=== PATIENT | male | born 1960 ===

== ENCOUNTER 2018-01-30 19:20 | Emergency (ER) | payer MEDICAID, SELFPAY ==
[2018-01-30 19:47] VITALS: TEMP 98.1
[2018-01-30] MEDS ORDERED: Naproxen 500 MG TAB PO ONE (20:09)
--- NOTE | 2018-01-30 20:28 | ED PDOC ---
Lower Extremity Pain/Injury Time Seen by Provider: 01/30/18 19:48 Chief Complaint (Nursing): Lower Extremity Problem/Injury Chief Complaint (Provider): Right Foot Pain and Swelling History Per: Patient History/Exam Limitations: no limitations Onset/Duration Of Symptoms: Days (x4) Current Symptoms Are (Timing): Still Present Severity: None Additional Complaint(s): 57 year old male presents to the emergency department complaining of left ankle pain and swelling. Patient reports that 4 days ago he tripped and fell causing injury and has been feeling pain ever since. Denies numbness, tingling and any other injury. - Ankle/Foot Description Of Injury: Fell Past Medical History Reviewed: Historical Data, Nursing Documentation, Vital Signs Vital Signs: Last Vital Signs Temp 98.1 F 01/30/18 19:45 Pulse 71 01/30/18 19:45 Resp 20 01/30/18 19:45 BP 139/89 01/30/18 19:45 Pulse Ox 100 01/30/18 19:45 - Medical History PMH: Denies: HIV, Chronic Kidney Disease - Surgical History Surgical History: No Surg Hx - Family History Family History: States: Unknown Family Hx - Home Medications Home Medications: Ambulatory Orders Medication Instructions Recorded Cephalexin [cephalexin] 500 mg PO TID #30 cap 08/30/16 Sulfamethoxazole/Trimethoprim 1 each PO BID #20 tablet 08/30/16 [Bactrim 400-80 mg Tablet] Naproxen [Naprosyn] 500 mg PO BID PRN #10 tab 01/30/18 - Allergies Allergies/Adverse Reactions: Allergies Allergy/AdvReac Type Severity Reaction Status Date / Time No Known Allergies Allergy Verified 01/30/18 19:45 Review of Systems Musculoskeletal: Positive for: Other (left ankle pain and swelling) Neurological: Negative for: Numbness (denies numbness and swelling) Physical Exam - Reviewed Nursing Documentation Reviewed: Yes Vital Signs Reviewed: Yes - Physical Exam Appears: Positive for: Non-toxic, No Acute Distress Skin: Positive for: Normal Color, Warm, Dry. Negative for: Rash Extremity: Positive for: Swelling (Left ankle on lateral malleolus moderate swelling and tenderness). Negative for: Tenderness (no foot or leg tenderness) , Calf Tenderness, Deformity Neurologic/Psych: Positive for: Oriented, Gait - ECG O2 Sat by Pulse Oximetry: 100 (RA) Pulse Ox Interpretation: Normal Medical Decision Making Medical Decision Makin Initial Impression 57 year old male presenting with left ankle pain Initial Plan: * Naproxen 500 mg PO * RAD left ankl * Reevaluation Pt. evaluated by Dr. Parrish, podiatry resident, discussed case with Dr. Daniel Sosa , splinted patient, and arranged outpatient f/u with Dr. Daniel sosa. Documented by Aggie valenzuela acting as a scribe for Negro Rodriguez PA-C. All medical record entries made by the Scribe were at my direction and personally dictated by me. I have reviewed the chart and agree that the record accurately reflects my personal performance of the history, physical exam, medical decision making, and the department course for this patient. I have also personally directed, reviewed, and agree with the discharge instructions and disposition. Disposition - Clinical Impression Clinical Impression: Ankle fracture - Patient ED Disposition Is Patient to be Admitted: No - Disposition Referrals: Andry Mast MD [Staff Provider] - Disposition: Routine/Home Disposition Time: 23:10 Condition: STABLE Additional Instructions: Follow up with Dr. Daniel Sosa as scheduled. Return to ED immediately if symptoms worsen. Prescriptions: Naproxen [Naprosyn] 500 mg PO BID PRN #10 tab PRN Reason: Pain Instructions: Ankle Fracture (DC), How to Use Crutches Forms: [employer] (Syriac) Print Language: KAZAKH
--- NOTE | 2018-01-30 21:45 | RAD ---
EXAM: XR Left Ankle Complete, 3 or More Views EXAM DATE/TIME: 01/30/2018 8:09 PM CLINICAL HISTORY: 57 years old, male; Injury or trauma; Fall; Initial encounter; Blunt trauma; Ankle; Left TECHNIQUE: Frontal, lateral and oblique views of the left ankle. COMPARISON: There are no prior studies for comparison. FINDINGS: Bones/joints: There is diffuse soft tissue swelling at the left ankle. There is no effusion in the ankle joint. No tibial fractures are identified. Distal fibular fracture cannot be excluded. No foot fractures are identified. Mineralization is normal. Soft tissues: There is mild edema in the lower half IMPRESSION: Diffuse soft tissue swelling, possible distal fibular fracture Correlate with point tenderness
[2018-01-30 23:39] VITALS: BP 134/82; PULSE 78; RESP 16; O2SAT 99
--- NOTE | 2018-01-31 09:18 | CP.PCM.CON ---
History of Present Illness - History of Present Illness History of Present Illness: Orthopedic Consult note: Dr. Osullivan 57 year old male with no significant PMHx was seen and evaluated at bedside for left ankle pain. Patient reports that he twisted his ankle about 4 days ago which led to his pain and swelling in the ankle today. Patient and his states that the patient is "hard headed and does not listen". Reports that he has been walking on his left LE after the injury even with mild pain. Patient states that the pain slowly increased overtime. Reports that he has been taking advil which has been helping him with the pain. Denies of any other trauma to the foot/ankle today. Denies of having recent F/N/V/C/SOB/CP/headache. Denies of any other pedal complains at this time. PMHx: Denies PSHx: Denies Allergies: N.K.D.A SHx: denies smoking, EtOH or illicit drug usage Review of Systems - Constitutional Constitutional: As Per HPI Past Patient History - Infectious Disease Hx of Infectious Diseases: None - Past Medical History & Family History Past Medical History?: No - Past Social History Smoking Status: Never Smoked - CARDIAC Hx Cardiac Disorders: No - PULMONARY Hx Respiratory Disorders: No - NEUROLOGICAL Hx Neurological Disorder: No - HEENT Hx HEENT Problems: No - RENAL Hx Chronic Kidney Disease: No - ENDOCRINE/METABOLIC Hx Endocrine Disorders: No - HEMATOLOGICAL/ONCOLOGICAL Hx Human Immunodeficiency Virus (HIV): No - INTEGUMENTARY Hx Dermatological Problems: No - MUSCULOSKELETAL/RHEUMATOLOGICAL Hx Falls: No - GENITOURINARY/GYNECOLOGICAL Hx Genitourinary Disorders: No - PSYCHIATRIC Hx Psychophysiologic Disorder: No Hx Substance Use: No (DENIES) - SURGICAL HISTORY Hx Surgeries: Yes Meds Home Medications: Home Medication List Medication Instructions Recorded Confirmed Type Naproxen [Naprosyn] 500 mg PO BID PRN #10 tab 01/30/18 Rx Allergies/Adverse Reactions: Allergies Allergy/AdvReac Type Severity Reaction Status Date / Time No Known Allergies Allergy Verified 01/30/18 19:45 Physical Exam - Constitutional Appears: Well, Non-toxic, No Acute Distress - Extremities Exam Additional comments: Left LE focused exam: VASC: DP/PT pulses are palpable 2/4, Cap refill time: < 3 sec noted to all digits, Temp gradient: warm to warm from proximal to distal, moderate non- pitting edema noted girish-malleolar area to the lateral ankle which extends distally to the dorsum of the left foot DERM: No open lesions, no erythema, no clinical suspicion of active infection NEURO: Protective sensation grossly intact ORTHO: Pain on palpation superior to ATFL ligament, no pain during palpation of the CFL ligament, pain present during palpation of the posterior lateral malleolus, no pain along the course of the peroneal tendons, no pain on palpation of the base of the 5th metatarsal, no pain on palpation of the Josefina 's tendon insertion on posterior calc or watershed area of the tendon, no gaps or dells noted on the Achilles tendon, no pain on palpation of the deltoid ligament complex, Tib-fib squeeze test: negative, mild pain during AROM in all 4 direction at the AJ which increased during PROM - pain localized to the lateral ankle, Prett test negative - Neurological Exam Neurological exam: Alert, Oriented x3 - Psychiatric Exam Psychiatric exam: Normal Affect, Normal Mood Results - Vital Signs Recent Vital Signs: Last Vital Signs Temp 98.1 F 01/30/18 19:45 Pulse 78 01/30/18 23:38 Resp 16 01/30/18 23:38 BP 134/82 01/30/18 23:38 Pulse Ox 99 01/30/18 23:38 Assessment & Plan - Assessment and Plan (Free Text) Assessment: 57 year old male with no extensive PMHx was evaluated for unicortical non- displaced lateral malleolus fracture with possible ATFL ligament injury Plan: Patient seen and evaluated Discussed plan with attending Dr. Osullivan Vitals and Charts reviewed X-rays of the left ankle ordered/reviewed - unicortical non-displaced radiolucent line noted posteriorly on the lateral view on lateral malleolus consistent with the lateral malleolus non- displaced fx; increase radiodensity within soft tissue consistent with soft tissue edema Aguila compression dressing applied to the LLE Well padded AO posterior splint applied to the LLE Patient educated of the RICE protocol Patient and educated to remain NWB to LLE using crutches Patient educated the course of treatment and educated to follow up with Dr. José Manuel Sosa Patient and his demonstrated verbal understanding of the plan Thank you for the podiatry consult and allowing to take part in patient care - Date & Time Date: 01/31/18 Time: 10:44
== END 2018-01-30 23:38 | disposition home or self-care (01) ==
LOC: H.ER 19:20
DX: S82.62XA Displaced fracture of lateral malleolus of left fibula, initial encounter for closed fracture (principal); W19.XXXA Unspecified fall, initial encounter; Y92.89 Other specified places as the place of occurrence of the external cause

== ENCOUNTER 2018-04-20 16:37 | Emergency (ER) | payer MEDICAID, OTHER ==
--- NOTE | 2018-04-20 16:54 | ED PDOC ---
HPI: General Adult Time Seen by Provider: 04/20/18 16:51 Chief Complaint (Provider): left foot pain History Per: Patient Additional Complaint(s): 57-year-old male presents with persistent pain to left foot. He sustained a fracture in January of 2018 and was placed in a cast which he only wore 5 weeks instead of 6 weeks as he was told. Patient states he has had swelling and pain since that time. 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 He denies any more recent trauma. PMD: none Past Medical History Reviewed: Historical Data, Nursing Documentation, Vital Signs Vital Signs: Last Vital Signs Temp 98.3 F 04/20/18 17:24 Pulse 68 04/20/18 17:24 Resp 16 04/20/18 17:24 BP 120/80 04/20/18 17:24 Pulse Ox 99 04/20/18 17:24 - Medical History PMH: No Chronic Diseases - Surgical History Surgical History: No Surg Hx - Family History Family History: States: No Known Family Hx - Living Arrangements Living Arrangements: With Family - Social History Current smoker - smoking cessation education provided: No Alcohol: None Drugs: Denies - Home Medications Home Medications: Ambulatory Orders Medication Instructions Recorded Cephalexin [cephalexin] 500 mg PO TID #30 cap 08/30/16 Sulfamethoxazole/Trimethoprim 1 each PO BID #20 tablet 08/30/16 [Bactrim 400-80 mg Tablet] Naproxen [Naprosyn] 500 mg PO BID PRN #10 tab 01/30/18 Ibuprofen [Motrin Tab] 800 mg PO Q8 PRN #20 tab 04/20/18 - Allergies Allergies/Adverse Reactions: Allergies Allergy/AdvReac Type Severity Reaction Status Date / Time No Known Allergies Allergy Verified 01/30/18 19:45 Review of Systems ROS Statement: Except As Marked, All Systems Reviewed And Found Negative Musculoskeletal: Positive for: Other (left foot and ankle pain) Physical Exam - Reviewed Nursing Documentation Reviewed: Yes Vital Signs Reviewed: Yes - Physical Exam Appears: Positive for: Well, Non-toxic, No Acute Distress Skin: Positive for: Normal Color. Negative for: Rash Eye Exam: Positive for: Normal appearance Cardiovascular/Chest: Positive for: Regular Rate, Rhythm Respiratory: Positive for: Normal Breath Sounds Extremity: Positive for: Other (Mild swelling and tenderness to dorsal aspect of left foot and lateral malleolus of left ankle, full range of motion with pain , normal distal sensation) Neurologic/Psych: Positive for: Alert, Oriented - ECG O2 Sat by Pulse Oximetry: 99 Pulse Ox Interpretation: Normal - Other Rad Left foot and ankle x-ray X-Ray: Interpreted by Me, Viewed By Me X-Ray Interpretation: no acute fx, no dis Medical Decision Making Medical Decision Makin57 y/o male with left foot and ankle pain Plan: Pain meds declined X-ray left foot and ankle Podiatry resident, Dr. Anaya at bedside. X-ray reviewed and shows malunion of previous fracture from January. Aguila compression dressing applied to affected area. Patient was given rx motrin and was referred to podiatry clinic at [facility] for follow up with Dr. Franks. Crutches given. Disposition - Clinical Impression Clinical Impression: Ankle pain - Patient ED Disposition Is Patient to be Admitted: No Counseled Patient/Family Regarding: Studies Performed, Diagnosis, Need For Followup, Rx Given - Disposition Referrals: [facility] [Outside] Disposition: Routine/Home Disposition Time: 19:08 Condition: STABLE Additional Instructions: Ice, rest and elevate affected area. Take prescription meds as directed as needed for pain. Follow-up at [facility] clinic with Dr. Franks. Call Monday to arrange for follow up appointment. Prescriptions: Ibuprofen [Motrin Tab] 800 mg PO Q8 PRN #20 tab PRN Reason: Pain, Moderate (4-7) Instructions: Ankle Sprain
[2018-04-20 17:25] VITALS: RESP 16; O2SAT 99
--- NOTE | 2018-04-20 18:22 | RAD ---
Date of service: 04/20/2018 PROCEDURE: Left Foot Radiographs. HISTORY: Lateral foot pain at the level of the 5th metatarsal. COMPARISON: None. FINDINGS: BONES: No acute fracture identified. Incidental Plantar and Achilles Tendon insertion calcaneal spurs. JOINTS: Normal. SOFT TISSUES: Normal. OTHER FINDINGS: None. IMPRESSION: No acute findings related to/accounting for the clinical presentation.
--- NOTE | 2018-04-20 18:23 | RAD ---
Date of service: 04/20/2018 PROCEDURE: Left Ankle Radiographs. HISTORY: pain COMPARISON: 01/30/2018 FINDINGS: BONES: Plantar and Achilles Tendon insertion calcaneal spurs. . No fracture. JOINTS: Normal. No osteoarthritis. Ankle mortise maintained. Talar dome intact SOFT TISSUES: Substantial decrease in soft tissue swelling identified on the prior study. OTHER FINDINGS: None. IMPRESSION: Soft tissue swelling without acute articular or osseous abnormality.
[2018-04-20 19:11] VITALS: BP 137/85; PULSE 69; TEMP 98.2
--- NOTE | 2018-04-20 19:34 | CP.PCM.CON ---
History of Present Illness - History of Present Illness History of Present Illness: Orthopedic Consult note for Dr. Osullivan 57 y/o male seen and evaluated in the ED for pain to the left ankle. Patient's present at bedside. Patient was seen in the ED on 01/30/18 for pain to the left ankle and at that time he had twisted his ankle. Patient was diagnosed with a non-displaced unicortical fracture of the posterior aspect of the lateral malleolus. Patient was placed in a Aguila compression with a posterior splint. Patient states he left the splint on for 5 weeks, however, was weight- bearing to the left lower extremity. Patient was unable to follow-up with Dr. Mast [place]. Patient reports the pain is minimal to the left ankle, however, he is concerned as it swells up every night. Patient further complains of minimal pain to the right ankle as he has been putting more weight to the right side. Patient takes Tylenol for pain as needed. Patient denies any new trauma. Patient's states patient applied for amina care and is pending approval. Patient denies any fever, N/V/SOB/CP Patient states he has not seen a medical doctor in 3-4 years and is unsure if he has any other medical conditions Allergies: none Social Hx: occassionally smokes and drinks alcohol, denied illicit drug use Review of Systems - Review of Systems All systems: reviewed and no additional remarkable complaints except Review of Systems: as per HPI Past Patient History - Infectious Disease Hx of Infectious Diseases: None - Past Medical History & Family History Past Medical History?: No - Past Social History Alcohol: None Drugs: Denies - CARDIAC Hx Cardiac Disorders: No - PULMONARY Hx Respiratory Disorders: No - NEUROLOGICAL Hx Neurological Disorder: No - HEENT Hx HEENT Problems: No - RENAL Hx Chronic Kidney Disease: No - ENDOCRINE/METABOLIC Hx Endocrine Disorders: No - HEMATOLOGICAL/ONCOLOGICAL Hx Human Immunodeficiency Virus (HIV): No - INTEGUMENTARY Hx Dermatological Problems: No - MUSCULOSKELETAL/RHEUMATOLOGICAL Hx Falls: No Other/Comment: left broken foot. - GASTROINTESTINAL Hx Gastrointestinal Disorders: No - GENITOURINARY/GYNECOLOGICAL Hx Genitourinary Disorders: No - PSYCHIATRIC Hx Psychophysiologic Disorder: No Hx Substance Use: No (DENIES) - SURGICAL HISTORY Hx Surgeries: Yes - ANESTHESIA Hx Anesthesia: No Meds Home Medications: Home Medication List Medication Instructions Recorded Confirmed Type Ibuprofen [Motrin Tab] 800 mg PO Q8 PRN #20 tab 04/20/18 Rx Allergies/Adverse Reactions: Allergies Allergy/AdvReac Type Severity Reaction Status Date / Time No Known Allergies Allergy Verified 01/30/18 19:45 Physical Exam - Constitutional Appears: Well, Non-toxic, No Acute Distress - Head Exam Head Exam: ATRAUMATIC, NORMOCEPHALIC - Extremities Exam Additional comments: Left LE focused exam: VASC: DP/PT pulses are palpable 2/4, Cap refill time: < 3 sec noted to all digits, Temp gradient: warm to warm from proximal to distal, moderate non- pitting edema noted girish-malleolar area to the lateral ankle DERM: No open lesions, no erythema, no clinical suspicion of active infection NEURO: Protective sensation grossly intact ORTHO: Pain on palpation to ATFL ligament, no pain during palpation of the CFL ligament, no pain present during palpation of the posterior lateral malleolus, no pain along the course of the peroneal tendons, no pain on palpation of the base of the 5th metatarsal, no pain on palpation of the Josefina's tendon insertion on posterior calc or watershed area of the tendon, no gaps or dells noted on the Achilles tendon, no pain on palpation of the deltoid ligament complex, Tib-fib squeeze test: negative, mild pain during AROM in all 4 direction at the AJ which increased during PROM - pain localized to the lateral ankle - Neurological Exam Neurological exam: Alert, Oriented x3 - Psychiatric Exam Psychiatric exam: Normal Affect, Normal Mood Results - Vital Signs Recent Vital Signs: Last Vital Signs Temp 98.2 F 04/20/18 19:10 Pulse 69 04/20/18 19:10 Resp 16 04/20/18 19:10 BP 137/85 04/20/18 19:10 Pulse Ox 99 04/20/18 19:10 Assessment & Plan - Assessment and Plan (Free Text) Assessment: 57 y/o male seen and evaluated in the ED for pain to the left ankle Plan: Patient seen and evaluated Plan discussed with Dr. Mast Chart reviewed- afebrile Ordered Left Foot and Ankle X-rays- healed, mis-aligned fracture to the left posterior aspect of the lateral malleolus, decreased in soft tissue swelling compare to previous x-ray from 01/30/18 Patient foot dressed in Aguila Compression due to the swelling Patient to continue using crutches to remain NWB, and to ice/elevate the left foot Patient to follow up with Dr. Franks in [facility] clinic as patient is currently applying for amina care Thank you for the consult - Date & Time Date: 04/20/18 Time: 19:40
== END 2018-04-20 19:12 | disposition home or self-care (01) ==
LOC: H.ER 16:37
DX: M25.572 Pain in left ankle and joints of left foot (principal)

== ENCOUNTER 2018-09-28 08:18 | Emergency (ER) | payer SELFPAY ==
[2018-09-28 08:20] VITALS: BMI 38.6
[2018-09-28 08:35] VITALS: O2SAT 98
[2018-09-28 09:45] LABS: BASO # 0.1 K/uL (0.0-0.2); BASO % 0.6 % (0.0-2.0); EOS # 0.2 K/uL (0.0-0.7); EOS % 1.8 % (0.0-4.0); HEMOGLOBIN 15.2 g/dL (12.0-18.0); LYMPH # 2.7 K/uL (1.0-4.3); LYMPH % 30.4 % (20.0-40.0); MEAN CORPUSCULAR HEMOGLOBIN 29.2 pg (27.0-31.0); MEAN CORPUSCULAR HGB CONC 33.1 g/dL (33.0-37.0); MEAN PLATELET VOLUME 8.8 fl (7.2-11.7); MONO # 0.6 K/uL (0.0-0.8); MONO % 6.9 % (0.0-10.0); NEUT # 5.3 K/uL (1.8-7.0); NEUT % 60.3 % (50.0-75.0); RBC 5.22 Mil/uL (4.40-5.90); RED CELL DISTRIBUTION WIDTH 13.2 % (11.5-14.5); WHITE BLOOD COUNT 8.8 K/uL (4.8-10.8)
[2018-09-28 09:57] LABS: BLOOD UREA NITROGEN 15 mg/dl (9-20); GFR NON-AFRICAN AMERICAN > 60
--- NOTE | 2018-09-28 10:00 | ED PDOC ---
HPI: General Adult Time Seen by Provider: 09/28/18 08:55 Chief Complaint (Nursing): Headache Chief Complaint (Provider): high BP, chest discomfort History Per: Patient History/Exam Limitations: no limitations Onset/Duration Of Symptoms: Hrs (chest discomfort), Days (headache, now resolved) Current Symptoms Are (Timing): Better Additional Complaint(s): 58 yo M with no known med hx presenting to ED due to concern over high BP, chest discomfort, and headache x 5 days. Headache - not worst headache of life, no dizziness/lightheadedness, no nausea/vomiting, no one sided weakness, no changes in vision; felt like he had pain behind his eyes. Last took advil 2 days ago; no headache presently in ED when examined in ED. Chest discomfort - does not describe as pain, states "funny feeling" in chest, not palpitations, but was concerned since be thinks his BP elevated. No diaphoresis, no radiation to extremities/jaw. BP - states his sister took his BP with home monitor and reading was 158/98. BP at triage was 140/93 at 0820, 14 min later 134/85. After completion of exam in ED, BP was 150/90. Med hx: none; does not see MD regularly Surg- none Meds: none Fam hx: HTN, DM2 Soc hx: smokes 10 cig/day; no alcohol or drug use No allergies Past Medical History Reviewed: Nursing Documentation, Vital Signs Vital Signs: Last Vital Signs Temp 98.4 F 09/28/18 08:20 Pulse 69 09/28/18 08:34 Resp 19 09/28/18 08:34 BP 134/85 09/28/18 08:34 Pulse Ox 98 09/28/18 08:34 - Medical History PMH: No Chronic Diseases Denies: HIV, Chronic Kidney Disease - Surgical History Surgical History: No Surg Hx - Family History Family History: States: Diabetes, Hypertension - Social History Alcohol: None Drugs: Denies - Allergies Allergies/Adverse Reactions: Allergies Allergy/AdvReac Type Severity Reaction Status Date / Time No Known Allergies Allergy Verified 01/30/18 19:45 Review of Systems Constitutional: Negative for: Fever, Chills, Sweats Eyes: Negative for: Vision Change Cardiovascular: Negative for: Chest Pain (denies chest pain), Palpitations Respiratory: Negative for: Cough, Shortness of Breath Gastrointestinal: Negative for: Nausea, Vomiting, Abdominal Pain Neurological: Positive for: Headache (resolved). Negative for: Numbness, Incoordination, Change in Speech Physical Exam - Reviewed Nursing Documentation Reviewed: Yes Vital Signs Reviewed: Yes - Physical Exam Appears: Positive for: Well, No Acute Distress Skin: Positive for: Normal Color, Warm, Dry Eye Exam: Positive for: Normal appearance Neck: Positive for: Painless ROM Cardiovascular/Chest: Positive for: Regular Rate, Rhythm, Chest Non Tender Respiratory: Positive for: Normal Breath Sounds. Negative for: Accessory Muscle Use, Wheezing, Respiratory Distress Gastrointestinal/Abdominal: Positive for: Bowel Sounds, Soft. Negative for: Tenderness Extremity: Negative for: Deformity Neurologic/Psych: Positive for: Alert, digital communications manager II-XII, Other (5/5 strength in all extremities). Negative for: Motor/Sensory Deficits, Aphasia, Facial Droop - Laboratory Results Result Diagrams: 09/28/18 09:40 09/28/18 09:40 - ECG O2 Sat by Pulse Oximetry: 98 Medical Decision Making Medical Decision Makin yo M with transiently elevated BP and some chest discomfort. - EKG - BMP - CBC - Troponin Discussed w/ Dr. Braxton. 0945 EKG NSR. CBC and BMP unremarkable. Trop pending. 1030 Toponin neg BP 124/89 11:23 Repeat EKG - NSR, no changes. HEART score: 3, low risk. BP transiently elevated in ED. Patient stable for discharge, encouraged to follow up in clinic and establish care with a PMD. All above discussed w/ Dr. Braxton. Disposition - Clinical Impression Clinical Impression: Chest discomfort - Patient ED Disposition Is Patient to be Admitted: No - Disposition Referrals: [facility] [Provider Group] Disposition: Routine/Home Disposition Time: 11:45 Condition: STABLE Additional Instructions: Please follow up with [facility]. Please call [phone] for appointment. Return to ED if you experience new onset chest pain, shortness of breath, one sided body weakness, or other acute change in condition. Forms: [employer] (Romanian)
[2018-09-28 10:38] VITALS: TEMP 97.6
[2018-09-28 12:25] VITALS: BP 132/78; PULSE 78; RESP 19
--- NOTE | 2018-09-28 14:25 | RAD ---
Date of service: 09/28/2018 HISTORY: possible admission COMPARISON: 03/02/2016 FINDINGS: LUNGS: No active pulmonary disease. PLEURA: No significant pleural effusion identified, no pneumothorax apparent. CARDIOVASCULAR: No atherosclerotic calcification present No radiographic findings to suggest acute or significant cardiovascular disease. OSSEOUS STRUCTURES: No significant abnormalities. VISUALIZED UPPER ABDOMEN: Normal. OTHER FINDINGS: None. IMPRESSION: No active disease. No significant interval change compared to the prior examination(s).
--- NOTE | 2018-09-28 23:46 | CARD ---
APPROVED REPORT Date of service: 09/28/2018 EKG Measurement Heart [id number] <Conclusion> Normal sinus rhythm Nonspecific ST abnormality- probably early repolarization a normal variant Probably normal ECG
--- NOTE | 2018-09-28 23:59 | CARD ---
APPROVED REPORT Date of service: 09/28/2018 EKG Measurement Heart [id number] <Conclusion> Normal sinus rhythm Nonspecific ST and T wave abnormality Abnormal ECG
== END 2018-09-28 12:26 | disposition home or self-care (01) ==
LOC: H.ER 08:18
DX: R07.89 Other chest pain (principal)